=== PATIENT | male | born 1940 | race Caucasian/White ===

== ENCOUNTER 2023-11-30 06:57 | Observation (INO) ==
[~2023-11-30 06:57] MED LIST: HYDROmorphone 1 MG/1 ML SYRINGE IV PRN; Naloxone 0.4 mg VIAL 0.4 mg/ml 1 ml VIAL IV PRN; fentaNYL 100 mcg/2 ml 50 MCG/ML VIAL IV PRN
[2023-11-30] MEDS ORDERED: cefTRIAXone 2 gm/50 mL D5W 2 GM/50 ML BAG IV ONE (07:18)
[2023-11-30 07:47] LABS: Rapid COVID-19 Molecular Undetected (Undetected)
[2023-11-30] MEDS ORDERED: Propofol 10 MG/ML 20 ML BTL ONE ×4 (08:10→10:39)
[2023-11-30] MEDS ORDERED: fentaNYL 100 mcg/2 ml 50 MCG/ML VIAL ONE (08:10)
[2023-11-30] MEDS ORDERED: Lidocaine 2% PF 5 ML VIAL ONE (08:10)
[2023-11-30] MEDS ORDERED: Lidocaine 2% w/ EPI 1:200,000 MPF 20 ML SDV VIAL ONE (08:38)
[2023-11-30] MEDS ORDERED: Phenylephrine IV 10 MG/ML 1 ml VIAL ONE (08:50)
[2023-11-30] MEDS ORDERED: Lidocaine 2% PF 10 ML AMP (OR) ONE (09:30)
[2023-11-30] MEDS ORDERED: Sodium Chloride 0.9% 10 ML ONE (09:34)
[2023-11-30] MEDS ORDERED: Ondansetron 4 mg VIAL 2 MG/ML 2 ml VIAL ONE ×2 (09:41→13:41)
[2023-11-30] MEDS ORDERED: Dexamethasone IV 4 MG/ML VIAL 1 ml VIAL ONE (09:41)
[2023-11-30] MEDS ORDERED: Furosemide 20 mg/2 ml IV VIAL ONE ×2 (10:13→15:03)
[2023-11-30] MEDS: Ondansetron 4 mg VIAL 2 MG/ML 2 ml VIAL IV PRN (13:42)
[2023-11-30] MEDS: Lactated Ringers 1000 ml BAG 1,000 ML IV SCH ×2 (14:32→16:51)
[2023-11-30] MEDS: Furosemide 20 mg/2 ml IV VIAL IV ONE (15:04)
[2023-11-30] MEDS: Buffered Lidocaine 1% SYRIN 1 ml INTRADERM ONE (16:51)
[2023-11-30] MEDS: DULAGLUTIDE 1.5 MG/0.5 ML SUBCUT SCH (17:22)
[2023-11-30] MEDS: DULoxetine DR 60 mg CAP PO SCH (20:17)
[2023-11-30] MEDS: Lidocaine 2% JELLY 6 ML Topical TOPICAL PRN (22:54)
[2023-12-01] MEDS: oxyCODONE/Acetamin 5/325 mg TAB PO ONE (02:22)
[2023-12-01] MEDS: Furosemide 20 mg/2 ml IV VIAL IV ONE (02:24)
[2023-12-01 06:21] LABS: Calcium 8.7 mg/dL (8.6-10.3); Creatinine, Serum 1.02 mg/dL (0.67-1.17); Potassium 4.3 mmol/L (3.5-5.0); eGFR CKD-EPI 73.8 (>60)
[2023-12-01] MEDS: cefTRIAXone 2 gm/50 mL D5W 2 GM/50 ML BAG IV ONE (08:50)
[2023-12-01 09:45] VITALS: BP 113/62
== END 2023-12-01 11:05 ==
LOC: SSU 06:57 → OR 06:57
PROVIDERS: ADMIT Urology; ATTEND Urology